=== PATIENT | male | born 1975 ===

== ENCOUNTER 2018-05-26 21:09 | Emergency (ER) | payer MEDICAID ==
[2018-05-26 21:10] VITALS: BMI 31.4
[2018-05-26 21:23] VITALS: BP 123/82; PULSE 96; RESP 18; TEMP 99.6; O2SAT 100
--- NOTE | 2018-05-26 22:15 | C.PDOC ---
History Of Present Illness 42 year old male presents to the emergency department with complaints of right eye pain, swelling, redness, and tearing for two days. He reports using eye drops for dry eyes which improved his symptoms initially but they returned today. Denies FB sensation, visual changes, purulent discharge, diplopia, headache, fever, known allergens, or h/o similar episodes in the past. Time Seen by Provider: 05/26/18 21:30 Chief Complaint (Nursing): Eye Problem History Per: Patient History/Exam Limitations: no limitations Onset/Duration Of Symptoms: Hrs Current Symptoms Are (Timing): Still Present Injury To Eye?: No Quality: "Pain" Associated Symptoms: Pain, Swelling, Other (redness) Past Medical History Reviewed: Historical Data, Nursing Documentation, Vital Signs Vital Signs: Last Vital Signs Temp 99.6 F 05/26/18 21:19 Pulse 96 H 05/26/18 21:19 Resp 18 05/26/18 21:19 BP 123/82 05/26/18 21:19 Pulse Ox 100 05/28/18 16:07 - Medical History PMH: Diabetes (type II), HTN, Hypercholesterolemia Surgical History: No Surg Hx Family History: States: No Known Family Hx - Social History Hx Alcohol Use: No Hx Substance Use: No - Immunization History Hx Tetanus Toxoid Vaccination: No Hx Influenza Vaccination: Yes Hx Pneumococcal Vaccination: No Review Of Systems Except As Marked, All Systems Reviewed And Found Negative. Eyes: Positive for: Pain, Redness, Other (swelling, tearing) Physical Exam - Physical Exam Appears: Non-toxic, No Acute Distress Skin: Warm Head: Atraumatic, Normacephalic Eye(s): bilateral: PERRL, EOMI, left: Other (Right eye : Amblyopia (pt notes its chronic) mild conjunctival injection, mild periorbital swelling, no fluorescine uptake, tonometer reading 14) Nose: Normal Oral Mucosa: Moist Throat: Normal, No Erythema, No Exudate Neck: Normal, Normal ROM, Supple Chest: Symmetrical Cardiovascular: Rhythm Regular Respiratory: Normal Breath Sounds, No Accessory Muscle Use Extremity: Normal ROM Neurological/Psych: Oriented x3, Normal Speech, Normal Cognition ED Course And Treatment O2 Sat by Pulse Oximetry: 100 (RA) Pulse Ox Interpretation: Normal Progress Note: Case discussed with Dr Ordoñez, agreed upon and discharge. Disposition - Disposition Referrals: Tashi Silva [Staff Provider] - Disposition: HOME/ ROUTINE Disposition Time: 22:13 Condition: GOOD Additional Instructions: Follow up with the eye doctor tomorrow. Return to the ER if symptoms persist or worsen. 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 - Scribe Statement The provider has reviewed the documentation as recorded by the Scribe (Pawan Cramer) All medical record entries made by the Scribe were at my direction and personally dictated by me. I have reviewed the chart and agree that the record accurately reflects my personal performance of the history, physical exam, medical decision making, and the department course for this patient. I have also personally directed, reviewed, and agree with the discharge instructions and disposition.
== END 2018-05-26 22:27 | disposition home or self-care (01) ==
LOC: C.ER 21:09
DX: H10.9 Unspecified conjunctivitis (principal)

== ENCOUNTER 2018-07-31 08:03 | Emergency (ER) | payer MEDICAID ==
[2018-07-31 08:04] VITALS: BMI 31.4
[2018-07-31] MEDS ORDERED: Lidocaine 1% Inj (20ml) INFIL STA (08:27)
[2018-07-31] MEDS ORDERED: Tmp-Smz 800 mg-160 mg DS Tab PO STA (08:27)
[2018-07-31] MEDS ORDERED: Tmp-Smz 800 mg-160 mg DS Tab ONE (08:43)
[2018-07-31] MEDS ORDERED: Lidocaine Hydrochloride 5 ML INJ ONE (08:43)
--- NOTE | 2018-07-31 09:14 | C.PDOC ---
History Of Present Illness 42 year old male presents to ED for evaluation of painful mass to back of his neck for the past 6 days. Notes he has had similar abscesses in that area in the past. Notes he initially felt itchy in the area but is now more painful and is larger in size. Patient states he called his shield cleaner but was not able to see him until 08/04. Denies fever, chills, or any other associated symptoms at this time. Time Seen by Provider: 07/31/18 08:22 Chief Complaint (Nursing): Abnormal Skin Integrity History Per: Patient History/Exam Limitations: no limitations Onset/Duration Of Symptoms: Days Current Symptoms Are (Timing): Still Present Location Of Injury: Posterior: Neck Quality Of Symptoms: Painful Recent travel outside of the [place]: No Additional History Per: Patient Past Medical History Reviewed: Historical Data, Nursing Documentation, Vital Signs Vital Signs: Last Vital Signs Temp 978 F H 07/31/18 08:05 Pulse 83 07/31/18 08:05 Resp 20 07/31/18 08:05 BP 117/78 07/31/18 08:05 Pulse Ox 100 07/31/18 08:05 - Medical History PMH: Diabetes (type II), HTN, Hypercholesterolemia Family History: States: Unknown Family Hx - Social History Hx Alcohol Use: No Hx Substance Use: No - Immunization History Hx Tetanus Toxoid Vaccination: No Hx Influenza Vaccination: Yes Hx Pneumococcal Vaccination: No Review Of Systems Except As Marked, All Systems Reviewed And Found Negative. Constitutional: Negative for: Fever, Chills Skin: Positive for: Other (painful mass to posterior neck) Physical Exam - Physical Exam Appears: Non-toxic, No Acute Distress Skin: Warm, Dry, Other (4 x 4cm of tender, fluctuant, and swollen mass to left posterior neck with mild surrounding erythema) Head: Atraumatic, Normacephalic Eye(s): bilateral: Normal Inspection Oral Mucosa: Moist Neck: Normal ROM, Supple Extremity: Normal ROM Neurological/Psych: Oriented x3, Normal Speech ED Course And Treatment O2 Sat by Pulse Oximetry: 100 (RA) Pulse Ox Interpretation: Normal - Incision & Drainage Of Abscess Anesthesia: Lidocaine 1% Prep Used: Sterile Water, Betadine Procedure: Incised W/Scalpel Blade#: (15), Drained Pus, Irrigated Cavity W/Saline, Packed W/Gauze (0.25in gauze dressing), Cultures Obtained And Sent To Lab Medical Decision Making Medical Decision Making: Impression: 42 year old male with abscess to posterior neck. Plan: * Incision and drainage * Bactrim Patient tolerated procedure well, no immediate complications. Patient is being discharged home and is instructed to return in 2 days for packing removal. Disposition Counseled Patient/Family Regarding: Diagnosis, Need For Followup, Rx Given - Disposition Referrals: Starla Weeks MD [Staff Provider] - Disposition: HOME/ ROUTINE Disposition Time: 09:11 Condition: GOOD Additional Instructions: Keep area clean and dry. Change dressing 1-2 times daily. Take antibiotic twice daily. Please follow up for packing removal in 2 days. 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 - Scribe Statement The provider has reviewed the documentation as recorded by the Scribe KP All medical record entries made by the Scribe were at my direction and personally dictated by me. I have reviewed the chart and agree that the record accurately reflects my personal performance of the history, physical exam, medical decision making, and the department course for this patient. I have also personally directed, reviewed, and agree with the discharge instructions and disposition.
[2018-07-31 09:53] VITALS: BP 140/90; PULSE 85; RESP 16; TEMP 98.5
[2018-07-31 10:00] VITALS: O2SAT 100
== END 2018-07-31 09:52 | disposition home or self-care (01) ==
LOC: C.ER 08:03
DX: L02.11 Cutaneous abscess of neck (principal); I10 Essential (primary) hypertension; E11.9 Type 2 diabetes mellitus without complications; E78.00 Pure hypercholesterolemia, unspecified

== ENCOUNTER 2018-08-05 23:37 | Emergency (ER) | payer MEDICAID ==
[2018-08-05 23:38] VITALS: BMI 31.4
[2018-08-05 23:59] VITALS: RESP 16; O2SAT 100
[2018-08-06] MEDS ORDERED: Sodium Chloride 0.9% 1,000 ML IV ONE ×2 (00:01)
[2018-08-06 00:21] LABS: BASO % 0.3 % (0.0-2.0); EOS # 0.5 K/uL (0.0-0.7); EOS % 3.5 % (0.0-4.0); HEMOGLOBIN 14.4 g/dL (12.0-18.0); LYMPH # 4.1 K/uL (1.0-4.3); LYMPH % 26.1 % (20.0-40.0); MEAN CELL VOLUME 87.4 fL (80.0-94.0); MEAN CORPUSCULAR HEMOGLOBIN 29.6 pg (27.0-31.0); MEAN CORPUSCULAR HGB CONC 33.8 g/dL (33.0-37.0); MEAN PLATELET VOLUME 10.7 fL (7.2-11.7); MONO # 0.8 K/uL (0.0-0.8); MONO % 5.3 % (0.0-10.0); NEUT # 10.2 K/uL (1.8-7.0); NEUT % 64.8 % (50.0-75.0); RBC 4.88 Mil/uL (4.40-5.90); RED CELL DISTRIBUTION WIDTH 13.9 % (11.5-14.5); WHITE BLOOD COUNT 15.7 K/uL (4.8-10.8)
[2018-08-06 00:27] LABS: SQUAMOUS EPITHIAL 2 /hpf (0-5); URINE BILIRUBIN NEGATIVE (NEGATIVE); URINE BLOOD 1+ (NEGATIVE); URINE CLARITY Clear (Clear); URINE COLOR Yellow (YELLOW); URINE GLUCOSE (UA) 3+ mg/dL (Normal); URINE LEUKOCYTE ESTERASE NEG Leu/uL (Negative); URINE PROTEIN 1+ mg/dL (NEGATIVE); URINE UROBILINOGEN NORMAL mg/dL (0.2-1.0)
[2018-08-06 00:30] LABS: VENOUS BLOOD GAS BASE EXCESS -2.6 mmol/L (0.0-2.0); VENOUS BLOOD GAS PCO2 53 mmHg (40-60); VENOUS BLOOD GAS PO2 15 mm/Hg (30-55); VENOUS BLOOD PH 7.28 (7.32-7.43)
--- NOTE | 2018-08-06 00:30 | C.PDOC ---
History Of Present Illness 42 year old male presents to the emergency department for evaluation of an itchy rash to the distal end of his penis. Patient reports that he is compliant with Metformin, but otherwise has no complaints. in er blood sugar noted to be >500. denies sexual activity. Time Seen by Provider: 08/05/18 23:53 Chief Complaint (Nursing): Abnormal Skin Integrity History Per: Patient History/Exam Limitations: no limitations Onset/Duration Of Symptoms: Days (3) Current Symptoms Are (Timing): Still Present Quality Of Symptoms: Itching Past Medical History Reviewed: Historical Data, Nursing Documentation, Vital Signs Vital Signs: Last Vital Signs Temp 98.9 F 08/05/18 23:47 Pulse 86 08/05/18 23:47 Resp 16 08/05/18 23:47 BP 121/83 08/05/18 23:47 Pulse Ox 100 08/05/18 23:47 - Medical History PMH: Diabetes (type II), HTN, Hypercholesterolemia Surgical History: No Surg Hx Family History: States: No Known Family Hx - Social History Hx Alcohol Use: No Hx Substance Use: No - Immunization History Hx Tetanus Toxoid Vaccination: No Hx Influenza Vaccination: Yes Hx Pneumococcal Vaccination: No Review Of Systems Except As Marked, All Systems Reviewed And Found Negative. Constitutional: Negative for: Fever, Chills Genitourinary: Negative for: Dysuria, Hematuria Skin: Positive for: Rash Physical Exam - Physical Exam Appears: Non-toxic, No Acute Distress Skin: Warm, Dry Head: Atraumatic, Normacephalic Eye(s): bilateral: Normal Inspection, PERRL, EOMI Oral Mucosa: Moist Neck: Normal, Supple Chest: Symmetrical, No Tenderness Cardiovascular: Rhythm Regular, No Murmur Respiratory: No Rales, No Rhonchi, No Wheezing Gastrointestinal/Abdominal: Soft, No Tenderness, No Guarding, No Rebound Male Genital: Circumcised, Other (erythematous rash to distal penis with satellite lesions) Neurological/Psych: Oriented x3, Normal Speech, Normal Cognition ED Course And Treatment - Laboratory Results Result Diagrams: 08/06/18 00:18 08/06/18 00:18 ECG Rhythm: Sinus Rhythm ECG Interpretation: Normal, No Acute Changes (No ST/T wave changes) Rate From EC O2 Sat by Pulse Oximetry: 100 (RA) Pulse Ox Interpretation: Normal Medical Decision Making Medical Decision Making: ro dka/balantiits Plan: VBG EKG Chemistry Bloodwork NaCl IV Fluids Urinalysis exam consistent with balantitis. suspect darrion, will cover for superimposed bacterial. no e/o of dka. blood sugar improved. pt advise outpt fu. Disposition - Disposition Referrals: Simone Sun MD [Staff Provider] - Disposition: HOME/ ROUTINE Disposition Time: 02:00 Condition: STABLE Additional Instructions: please follow up with specialist. return to er with worsening symptoms or concenrs. please discuss all lab tests with your doctor/clinic. you may need further testing as an outpatient. Prescriptions: Cephalexin [cephalexin] 500 mg PO QID #28 cap RX: Clotrimazole 1% [Lotrimin AF 1%] 1 applic EXT BID #1 bottle Instructions: Balanitis, Hyperglycemia, Adult (DC), The ABCs of Diabetes, White Blood Cell Count Differential Test Forms: [employer] (Vietnamese) - Clinical Impression Clinical Impression: Hyperglycemia, Balanitis - Scribe Statement The provider has reviewed the documentation as recorded by the Scribe (Pawan Cramer) Provider Attestation: All medical record entries made by the Scribe were at my direction and personally dictated by me. I have reviewed the chart and agree that the record accurately reflects my personal performance of the history, physical exam, medical decision making, and the department course for this patient. I have also personally directed, reviewed, and agree with the discharge instructions and disposition.
[2018-08-06] MEDS ORDERED: Sodium Chloride 0.9% 1,000 ML ONE (00:42)
[2018-08-06 00:45] LABS: PROTHROMBIN TIME 11.3 SECONDS (9.7-12.2)
[2018-08-06 00:53] LABS: ALB/GLOB RATIO 1.2 (1.0-2.1); ALBUMIN 4.1 g/dL (3.5-5.0); ALT/SGPT 22 U/L (21-72); AST/SGOT 20 U/L (17-59); BLOOD UREA NITROGEN 36 mg/dL (9-20); CALCIUM 9.4 mg/dl (8.6-10.4); GFR NON-AFRICAN AMERICAN > 60
[2018-08-06] MEDS ORDERED: (Novolin R) Insulin Human Regular 100 units/ml vial IVP STA (00:54)
[2018-08-06] MEDS ORDERED: (Novolin R) Insulin Human Regular 100 units/ml vial ONE (01:06)
[2018-08-06 02:25] VITALS: BP 104/66; PULSE 69; TEMP 97.8
--- NOTE | 2018-08-09 15:40 | CARD ---
APPROVED REPORT Date of service: 08/06/2018 EKG Measurement Heart [id number] <Conclusion> Normal sinus rhythm Septal infarct, age undetermined vs misplace leads PLEASE REPEAT Abnormal ECG
== END 2018-08-06 02:29 | disposition home or self-care (01) ==
LOC: C.ER 23:37
DX: N48.1 Balanitis (principal); E11.65 Type 2 diabetes mellitus with hyperglycemia; Z79.84 Long term (current) use of oral hypoglycemic drugs
CPT/HCPCS: 80053; 81001; 82009; 82803; 82948; 83735; 83930; 84484; 85025; 85610; 85730; 93005; 96361; 96374; 99285; J7030

== ENCOUNTER 2018-09-06 20:55 | Emergency (ER) | payer MEDICAID ==
[2018-09-06 20:56] VITALS: BMI 31.4
[2018-09-06 21:13] VITALS: BP 117/71; PULSE 81; RESP 20; TEMP 98.5; O2SAT 100
--- NOTE | 2018-09-06 21:47 | C.PDOC ---
History Of Present Illness 43-year-old male presents to the ED complaining of left eye irritation and pain since last night. He reports upon waking up today the pain worsened, and he began developing redness to the eye a couple of hours ago. Patient reports trying [id number] eye drops without improvement. He does wear glasses. Patient otherwise denies any foreign body sensation, discharge, or trauma/injury to eye. Pain is worsened with eye movement. Time Seen by Provider: 09/06/18 21:25 Chief Complaint (Nursing): Eye Problem History Per: Patient History/Exam Limitations: no limitations Onset/Duration Of Symptoms: Hrs Current Symptoms Are (Timing): Still Present Injury To Eye?: No Quality: "Pain" Wears Contact Lens?: No Past Medical History Reviewed: Historical Data, Nursing Documentation, Vital Signs Vital Signs: Last Vital Signs Temp 98.5 F 09/06/18 21:09 Pulse 81 09/06/18 21:09 Resp 20 09/06/18 21:09 BP 117/71 09/06/18 21:09 Pulse Ox 100 09/06/18 21:09 - Medical History PMH: Diabetes (type II), HTN, Hypercholesterolemia Family History: States: Unknown Family Hx - Social History Hx Alcohol Use: No Hx Substance Use: No - Immunization History Hx Tetanus Toxoid Vaccination: No Hx Influenza Vaccination: Yes Hx Pneumococcal Vaccination: No Review Of Systems Eyes: Positive for: Pain, Redness. Negative for: Vision Change, Other (dis charge or foreign body sensation) Physical Exam - Physical Exam Appears: Non-toxic, No Acute Distress Skin: Warm, Dry, No Rash Head: Atraumatic, Normacephalic Eye(s): bilateral: PERRL, EOMI, Other (Right eye ambylopia (chronic per patient) + Diffuse conjunctival injection to the left eye, no cloudiness or haziness to the cornea; annulus senilis bilaterally) Nose: Normal, No Discharge Oral Mucosa: Moist Neurological/Psych: Oriented x3, Normal Speech ED Course And Treatment O2 Sat by Pulse Oximetry: 100 (RA) Pulse Ox Interpretation: Normal Medical Decision Making Medical Decision Making: Plan: * Visual acuity performed, and is 20/25 bilaterally with glasses * Eye examined with fluorescein, no uptake seen * Tonometer measure was 13/95 Patient remained well in no acute distress. 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 - Scribe Statement The provider has reviewed the documentation as recorded by the Scribe Moriah Mccallum All medical record entries made by the Markibrama were at my direction and personally dictated by me. I have reviewed the chart and agree that the record accurately reflects my personal performance of the history, physical exam, medical decision making, and the department course for this patient. I have also personally directed, reviewed, and agree with the discharge instructions and disposition.
[2018-09-06] MEDS ORDERED: Tobramycin 0.3% OPH OINT OS STA (22:10)
[2018-09-06] MEDS ORDERED: Tobramycin 0.3% OPH OINT ONE (22:13)
== END 2018-09-06 22:22 | disposition home or self-care (01) ==
LOC: C.ER 20:55
DX: H20.9 Unspecified iridocyclitis (principal)